=== PATIENT | female | born 1935 | race Caucasian/White ===

== ENCOUNTER 2017-05-19 17:08 | Inpatient (IN) | payer OTHER, MEDICARE ==
--- NOTE | 2017-05-19 17:29 | ER Document Report ---
ED Medical Screen (RME) - General Chief Complaint: Abnormal Lab Results Stated Complaint: ABNORMAL LABS Time Seen by Provider: 05/19/17 17:27 Notes: Patient states she went to her primary care doctor's office today for a routine visit. The doctor stated that he felt that she looked pale and had a blood count. She states that she was told by the doctor that her blood count was 6.2 and she needed to come to the emergency department for evaluation. Patient denies any symptoms including feeling weak. TRAVEL OUTSIDE OF THE [place] IN LAST 30 DAYS: No - Related Data Allergies/Adverse Reactions: povidone-iodine [From Betadine] Allergy (Verified 05/19/17 17:13) soap [From Betadine] Allergy (Verified 05/19/17 17:13) prednisone Adverse Reaction (Verified 05/19/17 17:13) Past Medical History Renal/ Medical History: Denies: Hx Peritoneal Dialysis Physical Exam - Vital signs Vitals: Temp Pulse Resp BP Pulse Ox 98.8 F 88 20 148/70 H 99 05/19/17 17:11 05/19/17 17:11 05/19/17 17:11 05/19/17 17:11 05/19/17 17:11 Course - Vital Signs Vital signs: Temp Pulse Resp BP Pulse Ox 98.8 F 88 20 148/70 H 99 05/19/17 17:11 05/19/17 17:11 05/19/17 17:11 05/19/17 17:11 05/19/17 17:11
[2017-05-19 18:30] LABS: ABSOLUTE BASOPHILS # (AUTO) 0.1 10^3/uL (0.0-0.2); ABSOLUTE EOSINOPHILS # (AUTO) 0.2 10^3/uL (0.0-0.6); ABSOLUTE LYMPHOCYTES (AUTO) 2.2 10^3/uL (0.5-4.7); ABSOLUTE MONOCYTES (AUTO) 0.8 10^3/uL (0.1-1.4); ABSOLUTE NEUT (AUTO) 3.3 10^3/uL (1.7-8.2); BASOPHILS % (AUTO) 1.4 % (0-2); EOSINOPHILS % (AUTO) 2.4 % (0-6); HEMATOCRIT 21.7 % (36.0-47.0); HGB HCT DIFFERENCE -1.9; LYMPHOCYTES % (AUTO) 33.6 % (13-45); MEAN CORPUSCULAR HEMOGLOBIN 22.4 pg (27.0-33.4); MEAN CORPUSCULAR HGB CONC 30.7 g/dL (32.0-36.0); MEAN CORPUSCULAR VOLUME 73 fl (80-97); MONOCYTES % (AUTO) 12.9 % (3-13); RED BLOOD COUNT 2.97 10^6/uL (3.72-5.28); RED CELL DISTRIBUTION WIDTH 19.9 % (11.5-14.0); SEGMENTED NEUTROPHILS % (AUTO) 49.7 % (42-78); WHITE BLOOD COUNT 6.6 10^3/uL (4.0-10.5)
[2017-05-19 18:36] LABS: HEMOGLOBIN 6.6 g/dL (12.0-15.5)
[2017-05-19 18:42] LABS: ALANINE AMINOTRANSFERASE 18 U/L (9-52); ALBUMIN 3.8 g/dL (3.5-5.0); ALKALINE PHOSPHATASE 63 U/L (38-126); ANION GAP 10 (5-19); ASPARTATE AMINO TRANSFERASE 27 U/L (14-36); BILIRUBIN,DIRECT 0.4 mg/dL (0.0-0.4); BILIRUBIN,TOTAL 0.4 mg/dL (0.2-1.3); BLOOD UREA NITROGEN 17 mg/dL (7-20); CALCIUM 9.8 mg/dL (8.4-10.2); CARBON DIOXIDE 23 mmol/L (22-30); CHLORIDE 109 mmol/L (98-107); CREATININE RESULT 0.87 mg/dL (0.52-1.25); GLUCOSE 100 mg/dL (75-110); POTASSIUM 4.5 mmol/L (3.6-5.0); SODIUM 141.6 mmol/L (137-145); TOTAL PROTEIN 6.1 g/dL (6.3-8.2)
[2017-05-19] MEDS ORDERED: NORMAL SALINE 250 ML IV PRN (18:59)
--- NOTE | 2017-05-19 19:02 | ER Document Report ---
ED General - General Chief Complaint: Abnormal Lab Results Stated Complaint: ABNORMAL LABS Time Seen by Provider: 05/19/17 17:27 Notes: Patient is an 81-year-old female who presents from her primary care physician's office with concerns of a critically low hemoglobin at 6.2. Patient went in today for routine physical examination. During that time, the doctor became concerned that she appeared pale and order a panel of laboratories. She was contacted shortly thereafter and notified that her hemoglobin was critically low and she needed to come to the emergency department for further evaluation. The patient has no prior history of GI bleeds, chronic anemia, or malignancy. She does note that she has had an unintentional 15 pound weight loss over the last 4 months. Her daughter at the bedside notes that she appears to have less of an appetite likewise over the past 4 months. The patient denies any additional symptoms including abdominal pain, hematochezia, melena, hematemesis. She denies any chest pain or shortness of breath. She does admit that over the past several months she knows she becomes fatigued more easily but has not noted any additional symptoms. Her last colonoscopy was apparently in her early 70s. TRAVEL OUTSIDE OF THE [place] IN LAST 30 DAYS: No - Related Data Allergies/Adverse Reactions: povidone-iodine [From Betadine] Allergy (Verified 05/19/17 17:13) soap [From Betadine] Allergy (Verified 05/19/17 17:13) prednisone Adverse Reaction (Verified 05/19/17 17:13) Home Medications: Current Home Medications Aspirin [Piedad Chewable Aspirin] 81 mg PO DAILY 05/19/17 [History] Calcium Carbonate [Calcium] 1,200 mg PO DAILY 05/19/17 [History] Cholecalciferol (Vitamin D3) [Vitamin D3 2000 unit Tablet] 2,000 unit PO DAILY 05/19/17 [History] Ezetimibe [Zetia 10 mg Tablet] 10 mg PO DAILY 05/19/17 [History] Past Medical History - General Information source: Patient - Social History Smoking Status: Former Smoker Chew tobacco use (# tins/day): No Frequency of alcohol use: None Drug Abuse: None Lives with: Alone Family History: Reviewed & Not Pertinent Renal/ Medical History: Denies: Hx Peritoneal Dialysis - Immunizations Hx Diphtheria, Pertussis, Tetanus Vaccination: Yes Review of Systems - Review of Systems Notes: Constitutional: Negative for fever. HENT: Negative for sore throat. Eyes: Negative for visual changes. Cardiovascular: Negative for chest pain. Respiratory: Negative for shortness of breath. Gastrointestinal: Negative for abdominal pain, vomiting or diarrhea. Genitourinary: Negative for dysuria. Musculoskeletal: Negative for back pain. Skin: Negative for rash. Neurological: Negative for headaches, weakness or numbness. 10 point ROS negative except as marked above and in HPI. Physical Exam - Vital signs Vitals: Temp Pulse Resp BP Pulse Ox 98.8 F 88 20 148/70 H 99 05/19/17 17:11 05/19/17 17:11 05/19/17 17:11 05/19/17 17:11 05/19/17 17:11 Interpretation: Hypertensive Notes: PHYSICAL EXAMINATION: GENERAL: Well-appearing, well-nourished and in no acute distress. HEAD: Atraumatic, normocephalic. EYES: Pupils equal round and reactive to light, extraocular movements intact, sclera anicteric, conjunctiva are normal. ENT: nares patent, oropharynx clear without exudates. Moist mucous membranes. NECK: Normal range of motion, supple without lymphadenopathy LUNGS: Breath sounds clear to auscultation bilaterally and equal. No wheezes rales or rhonchi. HEART: Regular rate and rhythm without murmurs ABDOMEN: Soft, nontender, normoactive bowel sounds. No guarding, no rebound. No masses appreciated. Rectal: No gross blood or melena. No masses. EXTREMITIES: Normal range of motion, no pitting or edema. No cyanosis. NEUROLOGICAL: No focal neurological deficits. Moves all extremities spontaneously and on command. PSYCH: Normal mood, normal affect. SKIN: Warm, Dry, normal turgor, no rashes or lesions noted. Mild pallor Course - Re-evaluation Re-evalutation: 05/19/17 19:01 Patient presents with concern of a hemoglobin obtained on routine screening at her primary care doctor's office at 6.2. It is noted to be 6.6 here. MCV is low at 73 consistent with an acute blood loss anemia versus iron deficiency anemia. Patient denies any GI bleeding, vaginal bleeding, does admit to poor dietary habits as well as a unintentional 15 pound weight loss over the past 4 months. Her last colonoscopy screening was in her early 70s. Rectal exam without any gross blood or melena. Remainder physical exam is overall unremarkable with exception of obvious pallor on exam. Will obtain additional anemia panel labs. I do have concern for possible malignancy as the origin of her anemia as well as weight loss and have discussed this with the patient. 05/19/17 19:44 Patient's stool guaiac is positive. Will proceed with CT abdomen pelvis to evaluate for an acute malignancy. Will plan for admission given her acute blood loss anemia and positive stool. 05/19/17 21:11 CT abdomen pelvis thankfully does not show any evidence of acute malignancy. I have discussed this case with Dr. Gann the GI physician on-call who is agreeable that she needs inpatient colonoscopy. I have also spoken to Dr. Heard who is agreeable to admission. - Vital Signs Vital signs: Temp Pulse Resp BP Pulse Ox 98.8 F 88 15 109/55 L 100 05/19/17 17:11 05/19/17 17:11 05/19/17 20:37 05/19/17 20:37 05/19/17 20:37 - Laboratory Result Diagrams: 05/19/17 18:00 05/19/17 18:00 Laboratory results interpreted by me: 05/19/17 05/19/17 05/19/17 18:00 18:00 18:00 RBC 2.97 L Hgb 6.6 L Hct 21.7 L MCV 73 L MCH 22.4 L MCHC 30.7 L RDW 19.9 H Retic Count (auto) Chloride 109 H Iron Ferritin Total Protein 6.1 L Vitamin B12 Crossmatch See Detail 05/19/17 05/19/17 05/19/17 18:00 18:00 19:55 RBC Hgb Hct MCV MCH MCHC RDW Retic Count (auto) 2.90 H Chloride Iron 19.1 L Ferritin 6.31 L Total Protein Vitamin B12 233.0 L Crossmatch See Detail - Diagnostic Test Radiology reviewed: Reports reviewed Discharge - Discharge Clinical Impression: Acute blood loss anemia, Lower GI bleed Condition: Fair Disposition: ADMITTED INPATIENT Admitting Provider: Marci Heard Unit Admitted: [facility]
[2017-05-19 19:17] LABS: ADD ON TESTING BLD IN LAB ACKNOWLEDGE
[2017-05-19 20:02] LABS: FERRITIN 6.31 ng/mL (11.1-264.0)
--- NOTE | 2017-05-19 20:44 | RADIOLOGY REPORT (SQ) ---
EXAM DESCRIPTION: CT ABD/PELVIS WITH IV ONLY COMPLETED DATE/TIME: 05/19/2017 8:29 pm REASON FOR STUDY: eval weight loss, blood loss anemia COMPARISON: None. TECHNIQUE: CT scan of the abdomen and pelvis performed using helical scanning technique with dynamic intravenous contrast injection. No oral contrast. Images reviewed with lung, soft tissue, and bone windows. Reconstructed coronal and sagittal MPR images reviewed. Delayed images for evaluation of the urinary system also acquired. All images stored on PACS. All CT scanners at this facility use dose modulation, iterative reconstruction, and/or weight based d osing when appropriate to reduce radiation dose to as low as reasonably achievable (ALARA). [facility]: Dose Right [facility]: CareDose [facility]: Dose Right [facility]: Teradose 4D [facility]: AutoeBid CONTRAST TYPE AND DOSE: contrast/concentration: Isovue 370.00 mg/ml; Total Contrast Delivered: 79.0 ml; Total Saline Delivered: 38.0 ml RENAL FUNCTION: GFR > 60. RADIATION DOSE: Up-to-date CT equipment and radiation dose reduction techniques were employed. CTDIv ol: 8.0 - 11.4 mGy. DLP: 959 mGy-cm.. LIMITATIONS: None. FINDINGS: LOWER CHEST: No significant findings. No nodules or infiltrates. LIVER: Cyst/hemangioma. No significant masses. SPLEEN: Normal size. No focal lesions. PANCREAS: No masses. No significant calcifications. No adjacent inflammation or peripancreatic fluid collections. Pancreatic duct not dilated. GALLBLADDER: Surgically absent. ADRENAL GLANDS: No significant masses or asymmetry. RIGHT KIDNEY AND URETER: Renal cysts No significant calcifications. No hydronephrosis or hydroure ter. LEFT KIDNEY AND URETER: Renal cysts No significant calcifications. No hydronephrosis or hydrouret er. AORTA AND VESSELS: No aneurysm. No dissection. Renal arteries, SMA, celiac without stenosis. RETROPERITONEUM: No retroperitoneal adenopathy, hemorrhage or masses. BOWEL AND PERITONEAL CAVITY: No masses or inflammatory changes. No free fluid or peritoneal masses. APPENDIX: Not visualized. PELVIS: No mass. No free fluid. Normal bladder. ABDOMINAL WALL: No masses. No hernias. BONES: No significant or acute findings. OTHER: No other significant finding. IMPRESSION: NO SIGNIFICANT OR ACUTE FINDING IN THE ABDOMEN OR PELVIS ON CT SCAN WITH IV CONTRAST. TECHNICAL DOCUMENTATION: JOB ID: [id number] Quality ID # [id number]: Final reports with documentation of one or more dose reduction techniques (e.g., Au tomated exposure control, adjustment of the mA and/or kV according to patient size, use of iterative reconstruction technique) 2010 [employer]- All Rights Reserved
[2017-05-19 23:20] LABS: ADD ON TESTING BLD IN LAB ACKNOWLEDGE
[2017-05-19 23:44] LABS: MAGNESIUM 2.1 mg/dL (1.6-2.3)
[2017-05-19 23:59] LABS: PROTHROMBIN TIME 14.5 SEC (11.4-15.4)
[2017-05-20] LABS: PARTIAL THROMBOPLASTIN TIME 31.7 SEC (23.5-35.8)
[2017-05-20] MEDS ORDERED: NORMAL SALINE 1000 ML 1,000 ML IV PRN (01:43)
[2017-05-20] MEDS ORDERED: PROMETHAZINE HCL 25 MG TABLET PO PRN (01:50)
--- NOTE | 2017-05-20 02:27 | PDOC H&P ---
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 Patient has been discussed with emergency room physician who evaluated the patient. Was seen at her primary care physician's office today. Was noted to be quite pale. Hemoglobin drawn there 6.2. Primary care provider's office contacted patient and told her to come to the emergency room. No prior history of GI bleed, chronic anemia, or malignancy. There has been an unintentional 15 pound weight loss over the past 4 months, associated with decreased appetite. Has noted an occasional dark stool, but no matthew melena. Denies nausea vomiting, fever or chills. No diarrhea or dysuria, chest or abdominal pain. No history of peptic ulcer disease. Last colonoscopy was in her early 70s, and was reportedly negative. States she was told by her host, Dr. Sherman, that no further follow-up was needed. Emergency room physician did discuss the patient by phone with on-call gastroenterology, Dr. Mcclure, who has agreed to see the patient in consultation. Dictation via voice recognition software. Laboratory results are listed in [employer] and are reviewed. X-ray summary results are listed below, with full report(s) reviewed. . Social history/personal habits: . Retired. Has children. Quarter pack of cigarettes per day. No alcohol or illicit drug use. Allergies/adverse reactions are listed in [employer] and are reviewed. No problems with intravenous contrast. Prednisone because ankle and foot swelling. Home medications initially autopopulated into [employer] may not accurately reflect patient's true medications, dosages, and/or frequencies. 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 Unfortunately, patient not certain of all medications/dosages/frequencies. REVIEW OF SYSTEMS: Constitutional: No fever or chills. Eyes: Wears glasses. ENT: No swallowing problems or complaints. Partial hearing loss. Pulmonary: No current complaints. Cardiovascular: No current complaints, including chest pain. Gastrointestinal: See history and present illness. Skin: No current complaints, including rashes. Hematologic: Easy bruising. Neurologic: No current complaints, including numbness or tingling. Musculoskeletal: Joint pain from arthritis. Psychiatric: Denies anxiety or depression. Endocrine: No current complaints, including polyuria. Genitourinary: No current complaints, including dysuria. PHYSICAL EXAMINATION: Daughter is present at her side; patient improves. 5 feet tall. 73 kg. BMI 31.4 kg/m. Temperature 98.5. Blood pressure 115/56. Pulse 71 and regular. Respirations are 20 and unlabored. 96% saturation on room air. Slightly obese otherwise well-developed elderly female who appears approximately her stated age. Pleasant awake alert and cooperative. No obvious distress other than somewhat anxious. Skin is warm and dry. No grossly obvious evidence of rash in areas of skin examined. No subcutaneous nodules palpated. ENT: Hearing grossly normal to normal conversation. Tongue midline on protrusion pink and slightly tacky. Eyes: No scleral icterus. Pupils equal and reactive to light at 4 mm. Pale conjunctivae. Neck is supple and nontender to gentle active range of motion and palpation. Midline trachea. No palpable thyroid nodule mass enlargement or tenderness. Lymphatic: No palpable cervical or clavicular nodes. Neck and lymphatic exams limited by patient body habitus. Psychiatric: Reasonable insight into acute and chronic medical issues. Oriented to time location and why here. Lungs: Auscultation reveals clear and equal breath sounds bilaterally. No use of accessory respiratory muscles. Cardiovascular: Heart regular rate and rhythm, without gallop murmur or rub. No carotid or abdominal aortic bruits. No ankle or pedal edema. Palpable dorsalis pedis pulses. Abdomen:soft slightly obese nontender with positive bowel sounds. Unable to adequately evaluate abdomen for masses or organomegaly due to body habitus. Extremities: Feet are warm and dry. No calf tenderness to compression. No grossly obvious visual evidence of calf swelling. Gentle manipulation of lower extremities fails to reveal any obvious evidence of injury or instability to knees hips or ankles. Neurologic: Moves upper extremities grossly normally. Patellar reflexes absent. Absent Babinski. Light touch is intact at feet. Dorsiflexion and plantarflexion of feet 5 / 5 and symmetric. Past Medical History Cardiac Medical History: Reports: Hyperlipidema Denies: Atrial Fibrillation, Congestive Heart Failure, Coronary Artery Disease, DVT, Myocardial Infarction, Hypertension, Pulmonary Embolism Pulmonary Medical History: Reports: Chronic Obstructive Pulmonary Disease (COPD) Denies: Asthma, Sleep Apnea EENT Medical History: Reports: Eyes - Wears glasses, Ears - Partial hearing loss Denies: Throat Neurological Medical History: Denies: Hemorrhagic CVA, Ischemic CVA, Seizures Endocrine Medical History: Denies: Diabetes Mellitus Type 1, Diabetes Mellitus Type 2, Hyperthyroidism, Hypothyroidism Renal/ Medical History: Reports: None GI Medical History: Denies: Cirrhosis, Gastroesophageal Reflux Disease, Hepatitis, Peptic Ulcer Disease Musculoskeltal Medical History: Reports: Arthritis Skin Medical History: Reports: None Psychiatric Medical History: Reports: Tobacco Dependency Denies: Alcohol Dependency, Depression, General Anxiety Disorder, Substance Abuse Hematology: Reports: Other - Easy bruising Infectious Medical History: Denies: Hepatitis B, Hepatitis C Past Surgical History Past Surgical History: Reports: Cholecystectomy, Tubal Ligation Social History Information Source: Patient, Emergency Med Personnel, [facility] Lives with: Spouse/Significant other Smoking Status: Current Every Day Smoker Cigars Per Day: 7 Number of Years Smokin Frequency of Alcohol Use: None Hx Recreational Drug Use: No Drugs: None - Advance Directive Resuscitation Status: Do Not Resuscitate Surrogate healthcare decision maker:: or children Family History Family History: Reviewed & Not Pertinent Parental Family History Reviewed: Yes - Mother of old age; father diabetic complications Children Family History Reviewed: Yes - Son with von Willebrand's; daughter with hypertension Sibling(s) Family History Reviewed.: Yes - Sister with hypertension Medication/Allergy Home Medications: Aspirin [Piedad Chewable Aspirin] 81 mg PO DAILY 05/19/17 Calcium Carbonate [Calcium] 1,200 mg PO DAILY 05/19/17 Cholecalciferol (Vitamin D3) [Vitamin D3 2000 unit Tablet] 2,000 unit PO DAILY 05/19/17 Ezetimibe [Zetia 10 mg Tablet] 10 mg PO DAILY 05/19/17 Allergies/Adverse Reactions: povidone-iodine [From Betadine] Allergy (Verified 05/20/17 02:10) soap [From Betadine] Allergy (Verified 05/20/17 02:10) prednisone Adverse Reaction (Verified 05/20/17 02:10) ankle/foot swelling Physical Exam Vital Signs: Temp Pulse Resp BP Pulse Ox 98.4 F 77 20 103/44 L 97 05/20/17 01:36 05/20/17 01:36 05/20/17 01:36 05/20/17 01:36 05/20/17 01:36 Intake & Output 05/19/17 05/20/17 05/21/17 00:59 00:59 00:59 Intake Total 0 Balance 0 Weight 73.028 kg Results Impressions: Abdomen/Pelvis CT 05/19/17 19:19 IMPRESSION: NO SIGNIFICANT OR ACUTE FINDING IN THE ABDOMEN OR PELVIS ON CT SCAN WITH IV CONTRAST. Assessment & Plan - Diagnosis (1) Anemia Qualifiers: Anemia type: other cause Other causes of anemia: other cause, not classified Qualified Code(s): D64.89 - Other specified anemias Is this a current diagnosis for this admission?: Yes Plan: 2 unit transfusion ordered by emergency room physician. Follow-up H&H. I have strongly encouraged patient not to get out of bed without notifying staff , to avoid a fall with injury. Knee high SCDs for DVT prophylaxis; with anemia requiring blood transfusion, and heme positive stool, will forego Lovenox or heparin at this point in time. Impression and plans were discussed with patient and daughter, both of whom concur. Time spent in evaluation and management of patient: 70 minutes. (2) DNR (do not resuscitate) Is this a current diagnosis for this admission?: Yes Plan: Implications of DO NOT RESUSCITATE/DO NOT INTUBATE status discussed with patient. Discussed in layperson's terms. Implications understood. Patient is the health care decision maker. Patient conversation is lucid and appropriate. Patient desires DO NOT RESUSCITATE/DO NOT INTUBATE status. Will honor patient wishes. Daughter at bedside, and concurs. (3) Heme + stool Is this a current diagnosis for this admission?: Yes Plan: GI consult with Dr. Mcclure, who is aware of consult and has agreed to see patient. IV Protonix. Carafate. (4) Weight loss, non-intentional Is this a current diagnosis for this admission?: Yes Plan: Dietary consult for diet recommendation. Further follow-up as outpatient. (5) COPD (chronic obstructive pulmonary disease) Qualifiers: COPD type: unspecified COPD Qualified Code(s): J44.9 - Chronic obstructive pulmonary disease, unspecified Is this a current diagnosis for this admission?: Yes Plan: No evidence of acute exacerbation of same. Resume home medications as appropriate once these have been determined and reviewed. (6) HLD (hyperlipidemia) Qualifiers: Hyperlipidemia type: unspecified Qualified Code(s): E78.5 - Hyperlipidemia , unspecified Is this a current diagnosis for this admission?: Yes Plan: Resume home medications as appropriate once these have been determined and reviewed. (7) Tobacco dependency Is this a current diagnosis for this admission?: Yes Plan: As needed nicotine patch. - Time Time Spent: 50 to 70 Minutes Anticipated discharge: Home Within: within 72 hours - Inpatient Certification Based on my medical assessment, after consideration of the patient's comorbidities, presenting symptoms, or acuity I expect that the services needed warrant INPATIENT care.: Yes I certify that my determination is in accordance with my understanding of Medicare's requirements for reasonable and necessary INPATIENT services [42 CFR 412.3e].: Yes Medical Necessity: Need Close Monitoring Due to Risk of Patient Decompensation, Need for Surgery, Risk of Complication if Not Cared For in Hospital Post Hospital Care: D/C or Transfer Summary
[2017-05-20] MEDS: SUCRALFATE 1 GM TABLET PO SCH ×4 (02:51→17:02)
[2017-05-20 05:21] LABS: HEMATOCRIT 23.9 % (36.0-47.0); HGB HCT DIFFERENCE -0.5; MEAN CORPUSCULAR HEMOGLOBIN 23.8 pg (27.0-33.4); MEAN CORPUSCULAR HGB CONC 32.7 g/dL (32.0-36.0); MEAN CORPUSCULAR VOLUME 73 fl (80-97); RED BLOOD COUNT 3.29 10^6/uL (3.72-5.28); RED CELL DISTRIBUTION WIDTH 18.9 % (11.5-14.0); WHITE BLOOD COUNT 7.1 10^3/uL (4.0-10.5)
[2017-05-20 05:25] LABS: HEMOGLOBIN 7.8 g/dL (12.0-15.5)
[2017-05-20] MEDS ORDERED: NORMAL SALINE 250 ML IV PRN ×2 (05:44)
--- NOTE | 2017-05-20 07:36 | PDOC CONSULTATION ---
Consultation Consult Date: 05/20/17 Attending physician:: CHICHO QUINONEZ Consult reason:: chronic anemia. unintentional weight loss History of Present Illness Admission Date/PCP: 05/19/17 23:55 History of Present Illness: I was called by ER physician overnight on this patient had presented to the ED, noted to be anemic denies any rectal bleeding but states that stools are dark was noted to have Hgb around 6 had colonoscopy about 10 years ago, was told did not need further screening has had unintenional weight loss as well patient to be admitted transfusion needed she will likely need repeat GI work to exclude specific etiology patient denies any hematemesis there is no dysphagia or odynophagia daughter is present patient denies any chest pain or shortness of breath at this time Past Medical History Cardiac Medical History: Reports: Hyperlipidema Denies: Atrial Fibrillation, Congestive Heart Failure, Coronary Artery Disease, DVT, Myocardial Infarction, Hypertension, Pulmonary Embolism Pulmonary Medical History: Reports: Chronic Obstructive Pulmonary Disease (COPD) Denies: Asthma, Sleep Apnea EENT Medical History: Reports: Eyes - Wears glasses, Ears - Partial hearing loss , Other - Easy bruising Denies: Throat Neurological Medical History: Denies: Hemorrhagic CVA, Ischemic CVA, Seizures Endocrine Medical History: Denies: Diabetes Mellitus Type 1, Diabetes Mellitus Type 2, Hyperthyroidism, Hypothyroidism Renal/ Medical History: Reports: None GI Medical History: Denies: Cirrhosis, Gastroesophageal Reflux Disease, Hepatitis, Peptic Ulcer Disease Musculoskeltal Medical History: Reports: Arthritis Skin Medical History: Reports: None Psychiatric Medical History: Reports: Tobacco Dependency Denies: Alcohol Dependency, Depression, General Anxiety Disorder, Substance Abuse Hematology: Reports: Other - Easy bruising Infectious Medical History: Denies: Hepatitis B, Hepatitis C Past Surgical History Past Surgical History: Reports: Cholecystectomy, Tubal Ligation Social History Lives with: Alone Smoking Status: Former Smoker Cigars Per Day: 7 Number of Years Smokin Frequency of Alcohol Use: None Hx Recreational Drug Use: No Drugs: None - Advance Directive Resuscitation Status: Do Not Resuscitate Family History Family History: Reviewed & Not Pertinent Parental Family History Reviewed: Yes Children Family History Reviewed: Unknown Sibling(s) Family History Reviewed.: Unknown Medication/Allergy Home Medications: Aspirin [Piedad Chewable Aspirin] 81 mg PO DAILY 05/19/17 Calcium Carbonate [Calcium] 1,200 mg PO DAILY 05/19/17 Cholecalciferol (Vitamin D3) [Vitamin D3 2000 unit Tablet] 2,000 unit PO DAILY 05/19/17 Ezetimibe [Zetia 10 mg Tablet] 10 mg PO DAILY 05/19/17 Allergies/Adverse Reactions: povidone-iodine [From Betadine] Allergy (Verified 05/20/17 02:10) soap [From Betadine] Allergy (Verified 05/20/17 02:10) prednisone Adverse Reaction (Verified 05/20/17 02:10) ankle/foot swelling Review of Systems Constitutional: PRESENT: weakness. ABSENT: fever(s), headache(s), night sweats Eyes: ABSENT: visual disturbances Ears: ABSENT: hearing changes Nose, Mouth, and Throat: ABSENT: mouth pain, sore throat Cardiovascular: ABSENT: orthropnea, palpitations Respiratory: ABSENT: dyspnea, hemoptysis Gastrointestinal: ABSENT: abdominal pain, coffee ground emesis, diarrhea, hematochezia Genitourinary: ABSENT: dysuria, hematuria Musculoskeletal: ABSENT: deformity, joint swelling Integumentary: ABSENT: lesions, pruritus Neurological: ABSENT: syncope, tingling, tremor(s), vertigo Psychiatric: ABSENT: hallucinations Endocrine: ABSENT: polydipsia, polyphagia, polyuria Hematologic/Lymphatic: PRESENT: easy bruising Physical Exam Vital Signs: Temp Pulse Resp BP Pulse Ox 98.7 F 67 18 104/55 L 96 05/20/17 07:11 05/20/17 07:11 05/20/17 07:11 05/20/17 07:11 05/20/17 07:11 Intake & Output 05/19/17 05/20/17 05/21/17 06:59 06:59 06:59 Intake Total 350 0 Balance 350 0 Weight 78.3 kg General appearance: PRESENT: no acute distress, well-developed, well-nourished Head exam: PRESENT: atraumatic, normocephalic Eye exam: PRESENT: EOMI, PERRLA. ABSENT: nystagmus, periorbital swelling, scleral icterus Mouth exam: PRESENT: moist, neck supple Throat exam: ABSENT: tonsillar exudate, tonsillogmegaly Neck exam: PRESENT: full ROM. ABSENT: meningismus, tenderness, thyromegaly Respiratory exam: PRESENT: symmetrical, unlabored. ABSENT: chest wall tenderness, tachypnea, wheezes Cardiovascular exam: PRESENT: RRR, +S1, +S2 GI/Abdominal exam: PRESENT: soft. ABSENT: ascites, Qureshi's sign, rebound, rigid, tenderness Extremities exam: ABSENT: calf tenderness, clubbing, joint swelling Musculoskeletal exam: PRESENT: full ROM Neurological exam: PRESENT: alert, awake, oriented to time, oriented to situation, CN II-XII grossly intact Psychiatric exam: PRESENT: appropriate affect Skin exam: PRESENT: mottled, normal color. ABSENT: pallor, petechiae, urticaria , vesicles Results Laboratory Results: 05/20/17 05:08 05/20/17 05:08 WBC 7.1 RBC 3.29 L Hgb 7.8 L Hct 23.9 L MCV 73 L MCH 23.8 L MCHC 32.7 RDW 18.9 H Plt Count 153 Impressions: Abdomen/Pelvis CT 05/19/17 19:19 IMPRESSION: NO SIGNIFICANT OR ACUTE FINDING IN THE ABDOMEN OR PELVIS ON CT SCAN WITH IV CONTRAST. Assessment & Plan - Diagnosis (1) Acute blood loss anemia Plan: presumed blood loss likely chronic over time had colonoscopy over 10 years ago will need to be admitted stabilized with PRBC transfusion will need GI work up colonoscopy to be scheduled Risks, benefits and alternatives are discussed with the patient further recommendations to follow (2) Heme + stool Is this a current diagnosis for this admission?: Yes Plan: will need upper EGD as well can do at same setting (3) Weight loss, non-intentional Is this a current diagnosis for this admission?: Yes Plan: weight loss has been gradual will need to exclude either an upper or lower GI tract lesion continue to monitor - Time Time Spent: 50 to 70 Minutes
[2017-05-20] MEDS: DOCUSATE SODIUM 100 MG CAPSULE PO SCH ×2 (11:04→17:03)
[2017-05-20] MEDS: PANTOPRAZOLE SODIUM 40 MG VIAL IV SCH ×2 (11:04→21:50)
[2017-05-20 12:53] LABS: ABSOLUTE BASOPHILS # (AUTO) 0.1 10^3/uL (0.0-0.2); ABSOLUTE EOSINOPHILS # (AUTO) 0.2 10^3/uL (0.0-0.6); ABSOLUTE MONOCYTES (AUTO) 0.9 10^3/uL (0.1-1.4); ABSOLUTE NEUT (AUTO) 4.1 10^3/uL (1.7-8.2); BASOPHILS % (AUTO) 0.9 % (0-2); EOSINOPHILS % (AUTO) 2.4 % (0-6); HEMATOCRIT 26.7 % (36.0-47.0); HEMOGLOBIN 8.8 g/dL (12.0-15.5); HGB HCT DIFFERENCE -0.3; LYMPHOCYTES % (AUTO) 27.3 % (13-45); MEAN CORPUSCULAR HEMOGLOBIN 24.4 pg (27.0-33.4); MEAN CORPUSCULAR VOLUME 74 fl (80-97); MONOCYTES % (AUTO) 12.3 % (3-13); RED BLOOD COUNT 3.62 10^6/uL (3.72-5.28); RED CELL DISTRIBUTION WIDTH 19.7 % (11.5-14.0); SEGMENTED NEUTROPHILS % (AUTO) 57.1 % (42-78); WHITE BLOOD COUNT 7.2 10^3/uL (4.0-10.5)
--- NOTE | 2017-05-20 13:44 | PDOC PROGRESS REPORT ---
Subjective Progress Note for:: 05/20/17 Subjective:: Patient denies any specific complaints. Denies any abdominal pain nausea or vomiting. Denies dizziness at this time. Denies melena hematochezia or hematemesis. No vaginal bleeding as well. No hematuria noted. Physical Exam Vital Signs: Temp Pulse Resp BP Pulse Ox 97.6 F 58 L 16 109/54 L 98 05/20/17 11:07 05/20/17 11:07 05/20/17 11:07 05/20/17 11:07 05/20/17 11:07 Intake & Output 05/19/17 05/20/17 05/21/17 06:59 06:59 06:59 Intake Total 350 350 Balance 350 350 Weight 78.3 kg General appearance: PRESENT: no acute distress, cooperative Head exam: PRESENT: normocephalic Eye exam: PRESENT: EOMI Mouth exam: PRESENT: moist, neck supple Neck exam: ABSENT: JVD Respiratory exam: PRESENT: clear to auscultation roxann. ABSENT: rhonchi, wheezes Cardiovascular exam: PRESENT: RRR. ABSENT: gallop GI/Abdominal exam: PRESENT: hypoactive bowel sounds, soft. ABSENT: tenderness Extremities exam: ABSENT: pedal edema Neurological exam: PRESENT: alert, awake, oriented to situation Skin exam: PRESENT: dry, warm. ABSENT: cyanosis Results Laboratory Results: 05/20/17 12:38 05/20/17 05/20/17 05:08 12:38 WBC 7.1 7.2 RBC 3.29 L 3.62 L Hgb 7.8 L 8.8 L Hct 23.9 L 26.7 L MCV 73 L 74 L MCH 23.8 L 24.4 L MCHC 32.7 33.0 RDW 18.9 H 19.7 H Plt Count 153 143 L Seg Neutrophils % 57.1 Lymphocytes % 27.3 Monocytes % 12.3 Eosinophils % 2.4 Basophils % 0.9 Absolute Neutrophils 4.1 Absolute Lymphocytes 2.0 Absolute Monocytes 0.9 Absolute Eosinophils 0.2 Absolute Basophils 0.1 Impressions: Abdomen/Pelvis CT 05/19/17 19:19 IMPRESSION: NO SIGNIFICANT OR ACUTE FINDING IN THE ABDOMEN OR PELVIS ON CT SCAN WITH IV CONTRAST. Assessment & Plan - Diagnosis (1) Anemia Qualifiers: Anemia type: other cause Other causes of anemia: other cause, not classified Qualified Code(s): D64.89 - Other specified anemias Is this a current diagnosis for this admission?: Yes (2) Heme + stool Is this a current diagnosis for this admission?: Yes (3) Osteoarthritis Qualifiers: Osteoarthritis location: unspecified site Osteoarthritis type: unspecified Qualified Code(s): M19.90 - Unspecified osteoarthritis, unspecified site Is this a current diagnosis for this admission?: Yes (4) COPD (chronic obstructive pulmonary disease) Qualifiers: COPD type: unspecified COPD Qualified Code(s): J44.9 - Chronic obstructive pulmonary disease, unspecified Is this a current diagnosis for this admission?: Yes (5) HLD (hyperlipidemia) Qualifiers: Hyperlipidemia type: unspecified Qualified Code(s): E78.5 - Hyperlipidemia , unspecified Is this a current diagnosis for this admission?: Yes - Time Time Spent with patient: 25-34 minutes - Plan Summary Plan Summary: We will follow-up hemoglobin hematocrit serially. Continue proton pump inhibitor. Consult gastroenterology for endoscopic studies. Hold long-term antiplatelet therapy at this time.
[2017-05-20] MEDS: IPRATROPIUM/ALBUTEROL 0.5-2.5 MG/3 ML AMPUL NEB PRN (14:35)
[2017-05-20] MEDS ORDERED: PEG 3350/NA SULF,BICARB,CL/KCL 4000 ML PO ONE (18:00)
[2017-05-20] MEDS: ACETAMINOPHEN 325 MG TABLET PO PRN (21:51)
[2017-05-21] MEDS: SUCRALFATE 1 GM TABLET PO SCH ×4 (00:58→17:28)
[2017-05-21 05:20] LABS: ANION GAP 8 (5-19); BLOOD UREA NITROGEN 12 mg/dL (7-20); CALCIUM 8.4 mg/dL (8.4-10.2); CARBON DIOXIDE 24 mmol/L (22-30); CHLORIDE 110 mmol/L (98-107); CREATININE RESULT 0.82 mg/dL (0.52-1.25); GLUCOSE 84 mg/dL (75-110); POTASSIUM 3.8 mmol/L (3.6-5.0); SODIUM 141.5 mmol/L (137-145)
[2017-05-21 05:21] LABS: HEMATOCRIT 24.3 % (36.0-47.0); HEMOGLOBIN 8.1 g/dL (12.0-15.5); MEAN CORPUSCULAR HEMOGLOBIN 24.9 pg (27.0-33.4); MEAN CORPUSCULAR HGB CONC 33.4 g/dL (32.0-36.0); MEAN CORPUSCULAR VOLUME 75 fl (80-97); RED BLOOD COUNT 3.26 10^6/uL (3.72-5.28); RED CELL DISTRIBUTION WIDTH 19.8 % (11.5-14.0); WHITE BLOOD COUNT 5.3 10^3/uL (4.0-10.5)
[2017-05-21] MEDS ORDERED: DIPHENHYDRAMINE HCL 50 MG/ML VIAL ONE (08:33)
[2017-05-21] MEDS: MIDAZOLAM 2 MG/2 ML INJ ONE ×2 (08:33→08:38)
[2017-05-21] MEDS ORDERED: FENTANYL CITRATE INJ/PF 100 MCG/2 ML AMPUL ONE (08:34)
[2017-05-21] MEDS ORDERED: FLUMAZENIL INJ 0.5 MG/5 ML VIAL ONE (08:34)
[2017-05-21] MEDS ORDERED: NALOXONE HCL INJ/PF 0.4 MG/1 ML SDV ONE (08:34)
[2017-05-21] MEDS ORDERED: ONDANSETRON HCL INJ/PF 4 MG/2 ML SDV ONE (08:34)
[2017-05-21] MEDS ORDERED: EPINEPHRINE INJ 1 MG/10 ML DISP.SYRIN ONE (08:34)
[2017-05-21] MEDS ORDERED: GLUCAGON,HUMAN RECOMB 1 MG INJ ONE (08:35)
[2017-05-21] MEDS: DOCUSATE SODIUM 100 MG CAPSULE PO SCH ×2 (10:15→17:24)
--- NOTE | 2017-05-21 10:51 | PDOC PROGRESS REPORT ---
Subjective Progress Note for:: 05/21/17 Subjective:: Postoperatively the patient was having lightheadedness and some blurring of vision. Eventually resolved. No reported nausea vomiting, abdominal pain diarrhea, melena hematochezia or hematemesis. Physical Exam Vital Signs: Temp Pulse Resp BP Pulse Ox 97.9 F 69 15 112/55 L 95 05/21/17 07:18 05/21/17 09:20 05/21/17 09:20 05/21/17 09:20 05/21/17 09:20 Intake & Output 05/20/17 05/21/17 05/22/17 06:59 06:59 06:59 Intake Total 350 1560 400 Output Total 750 Balance 350 810 400 Weight 78.3 kg 74.6 kg General appearance: PRESENT: no acute distress, cooperative, obese Head exam: PRESENT: normocephalic Eye exam: PRESENT: EOMI Mouth exam: PRESENT: moist, neck supple Neck exam: ABSENT: JVD Respiratory exam: PRESENT: clear to auscultation roxann Cardiovascular exam: PRESENT: RRR GI/Abdominal exam: PRESENT: soft. ABSENT: distended, tenderness Extremities exam: PRESENT: other - Trace pretibial edema Neurological exam: PRESENT: alert, awake, oriented to situation Skin exam: PRESENT: dry, warm. ABSENT: cyanosis Results Laboratory Results: 05/21/17 04:19 05/21/17 04:19 05/20/17 05/21/17 05/21/17 12:38 04:19 04:19 WBC 7.2 5.3 RBC 3.62 L 3.26 L Hgb 8.8 L 8.1 L Hct 26.7 L 24.3 L MCV 74 L 75 L MCH 24.4 L 24.9 L MCHC 33.0 33.4 RDW 19.7 H 19.8 H Plt Count 143 L 124 L Seg Neutrophils % 57.1 Lymphocytes % 27.3 Monocytes % 12.3 Eosinophils % 2.4 Basophils % 0.9 Absolute Neutrophils 4.1 Absolute Lymphocytes 2.0 Absolute Monocytes 0.9 Absolute Eosinophils 0.2 Absolute Basophils 0.1 Sodium 141.5 Potassium 3.8 Chloride 110 H Carbon Dioxide 24 Anion Gap 8 BUN 12 Creatinine 0.82 Est GFR ( Amer) > 60 Est GFR (Non-Af Amer) > 60 Glucose 84 Calcium 8.4 Impressions: Abdomen/Pelvis CT 05/19/17 19:19 IMPRESSION: NO SIGNIFICANT OR ACUTE FINDING IN THE ABDOMEN OR PELVIS ON CT SCAN WITH IV CONTRAST. Assessment & Plan - Diagnosis (1) Anemia Qualifiers: Anemia type: other cause Other causes of anemia: other cause, not classified Qualified Code(s): D64.89 - Other specified anemias Is this a current diagnosis for this admission?: Yes (2) Heme + stool Is this a current diagnosis for this admission?: Yes (3) Osteoarthritis Qualifiers: Osteoarthritis location: unspecified site Osteoarthritis type: unspecified Qualified Code(s): M19.90 - Unspecified osteoarthritis, unspecified site Is this a current diagnosis for this admission?: Yes (4) COPD (chronic obstructive pulmonary disease) Qualifiers: COPD type: unspecified COPD Qualified Code(s): J44.9 - Chronic obstructive pulmonary disease, unspecified Is this a current diagnosis for this admission?: Yes (5) HLD (hyperlipidemia) Qualifiers: Hyperlipidemia type: unspecified Qualified Code(s): E78.5 - Hyperlipidemia , unspecified Is this a current diagnosis for this admission?: Yes - Time Time Spent with patient: 15-24 minutes - Plan Summary Plan Summary: Discontinue IV fluids. Recheck hemoglobin hematocrit. Awaiting colonoscopy results. Continue proton pump inhibitor. No reported active bleeding at the moment, drop in hematocrit could be related to dilution. We will discontinue intravenous fluid and recheck. Resume diet.
[2017-05-21] MEDS: PANTOPRAZOLE SODIUM 40 MG VIAL IV SCH ×2 (11:11→21:33)
--- NOTE | 2017-05-21 11:30 | Operative Report ---
Operative Report DATE OF SURGERY: 05/21/17 Operative Report: The risks, benefits and alternatives of the procedure including risks of bleeding, perforation requiring surgery are explained to the patient detail and informed consent was obtained. Patient was taken back to the endoscopy suite and placed in the left, lateral decubital position. A rectal examination is done which did not reveal any masses, tears or fissures. An Olympus spelled scope was inserted in the patient's rectum. It is carefully advanced all the way to the cecum. The cecum is identified by the usual anatomical landmarks of the ileocecal valve as well as the appendiceal office. Photodocumentation is obtained. The scope was then sequentially pulled back via the various segments of the colon including the ascending colon, hepatic flexure, transverse colon, splenic flexure, descending colon finding to the rectosigmoid portions of the colon. Retroflexion maneuvers performed. The risks benefits and alternatives of the procedure explained to the patient in detail and informed consent is obtained.A GIF Olympus video scope was inserted into the patient's mouth and hypopharynx, the esophagus is identified intubated and insufflated, the scope was then advanced through the esophagus stomach and duodenum, retroflexion maneuver is done, the esophagus stomach and first and second portions of the duodenum examined PREOPERATIVE DIAGNOSIS: Chronic anemia. Possible GI bleed. Unintentional weight loss POSTOPERATIVE DIAGNOSIS: Hiatal hernia. Schatzki's ring. Chowdhury's esophagus status post ablation. Gastritis status post biopsy rule out Helicobacter pylori. 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 2 rectal polyps removed via snare polypectomy and retrieved. Internal hemorrhoids OPERATION: Colonoscopy with snare polypectomy. Colonoscopy with biopsy. EGD with ablation. EGD with biopsy SURGEON: CHICHO QUINONEZ ANESTHESIA: LMAC - 3 mg of Versed, 25 mcg of fentanyl. Conscious sedation monitoring time 30 minutes. TISSUE REMOVED OR ALTERED: As noted above. COMPLICATIONS: None. ESTIMATED BLOOD LOSS: None. INTRAOPERATIVE FINDINGS: As described above. PROCEDURE: Patient tolerated the procedure well. No immediate postprocedure complications are noted. Patient sent back to her room in good condition. We will wait on biopsies. Surveillance colonoscopy in 5 years if clinical status is stable. We will wait on biopsies. Follow-up as outpatient. Resume previous diet. Resume previous activity level.
[2017-05-21] MEDS: IPRATROPIUM/ALBUTEROL 0.5-2.5 MG/3 ML AMPUL NEB PRN (14:09)
[2017-05-21] MEDS: ACETAMINOPHEN 325 MG TABLET PO PRN (14:24)
[2017-05-21 14:42] LABS: HEMATOCRIT 28.2 % (36.0-47.0); HGB HCT DIFFERENCE -1.2; MEAN CORPUSCULAR HEMOGLOBIN 24.3 pg (27.0-33.4); MEAN CORPUSCULAR HGB CONC 32.1 g/dL (32.0-36.0); MEAN CORPUSCULAR VOLUME 76 fl (80-97); RED BLOOD COUNT 3.72 10^6/uL (3.72-5.28); RED CELL DISTRIBUTION WIDTH 19.3 % (11.5-14.0)
[2017-05-22] MEDS: SUCRALFATE 1 GM TABLET PO SCH ×3 (00:17→11:28)
[2017-05-22] MEDS: ACETAMINOPHEN 325 MG TABLET PO PRN (06:07)
[2017-05-22] MEDS: DOCUSATE SODIUM 100 MG CAPSULE PO SCH (10:42)
[2017-05-22] MEDS: PANTOPRAZOLE SODIUM 40 MG VIAL IV SCH (10:42)
[2017-05-22 12:53] VITALS: BP 117/58
--- NOTE | 2017-05-22 14:19 | PDOC DISCHARGE SUMMARY ---
General - Admit/Disc Date/PCP Admission Date/Primary Care Provider: 05/19/17 23:55 Discharge Date: 05/22/17 - Discharge Diagnosis (1) Anemia Is this a current diagnosis for this admission?: Yes (2) Heme + stool Is this a current diagnosis for this admission?: Yes (3) Osteoarthritis Is this a current diagnosis for this admission?: Yes (4) COPD (chronic obstructive pulmonary disease) Is this a current diagnosis for this admission?: Yes (5) HLD (hyperlipidemia) Is this a current diagnosis for this admission?: Yes - Additional Information Resuscitation Status: Do Not Resuscitate Discharge Diet: Regular Discharge Activity: Activity As Tolerated, Balance Activity w/Rest Home Medications: Aspirin [Piedad Chewable Aspirin] 81 mg PO DAILY 05/19/17 Calcium Carbonate [Calcium] 1,200 mg PO DAILY 05/19/17 Cholecalciferol (Vitamin D3) [Vitamin D3 2000 unit Tablet] 2,000 unit PO DAILY 05/19/17 Ezetimibe [Zetia 10 mg Tablet] 10 mg PO DAILY 05/19/17 Lansoprazole [Prevacid] 30 mg PO BID #60 capsule. 05/22/17 Additional Information: Follow-up biopsy results outpatient with primary care physician or Dr. Sherman History of Present Illness Patient complains of: Anemia History of Present Illness: AYAN SINHA is a 81 year old female with underlying non-home O2 dependent COPD, arthritis, and hyperlipidemia, who presents to the emergency room in referral from her primary care provider's office for above issue. Patient has been discussed with emergency room physician who evaluated the patient. Was seen at her primary care physician's office today. Was noted to be quite pale. Hemoglobin drawn there 6.2. Primary care provider's office contacted patient and told her to come to the emergency room. No prior history of GI bleed, chronic anemia, or malignancy. There has been an unintentional 15 pound weight loss over the past 4 months, associated with decreased appetite. Has noted an occasional dark stool, but no matthew melena. Denies nausea vomiting, fever or chills. No diarrhea or dysuria, chest or abdominal pain. No history of peptic ulcer disease. Last colonoscopy was in her early 70s, and was reportedly negative. States she was told by her manager manufacturing, Dr. Sherman, that no further follow-up was needed. Emergency room physician did discuss the patient by phone with on-call gastroenterology, Dr. Mcclure, who has agreed to see the patient in consultation. Hospital Course Hospital Course: The patient was admitted to [facility]. The patient was given 2 units of packed RBC. Follow-up hemoglobin hematocrit monitoring was stable subsequently. Patient was hydrated, placed on intravenous proton pump inhibitor. Gastroenterology was consulted who eventually perform upper and lower endoscopy. Patient without any active bleeding noted. There was polypectomy done. Chowdhury's esophagus was noted with ablation done as well. There is gastritis noted as well as hiatal hernia and Schatzki's ring. The patient improved. The rest of the hospital stays unremarkable. Patient educated and instructed about signs and symptoms of gastrointestinal bleeding. Patient understood. Patient eventually discharged home with above instructions. Physical Exam Vital Signs: Temp Pulse Resp BP Pulse Ox 98.7 F 69 18 117/58 L 94 05/22/17 12:48 05/22/17 12:48 05/22/17 12:48 05/22/17 12:48 05/22/17 12:48 Intake & Output 05/21/17 05/22/17 05/23/17 06:59 06:59 06:59 Intake Total 1560 1747 250 Output Total 750 Balance 810 1747 250 Weight 74.6 kg General appearance: PRESENT: no acute distress, cooperative, obese Head exam: PRESENT: normocephalic Eye exam: PRESENT: EOMI Mouth exam: PRESENT: moist, neck supple Neck exam: ABSENT: JVD Respiratory exam: PRESENT: clear to auscultation roxann Cardiovascular exam: PRESENT: RRR. ABSENT: gallop GI/Abdominal exam: PRESENT: normal bowel sounds, soft. ABSENT: distended Extremities exam: PRESENT: other - Trace pretibial edema Neurological exam: PRESENT: alert, awake, oriented to person, oriented to place , oriented to time, oriented to situation Skin exam: PRESENT: dry, warm. ABSENT: cyanosis Results Laboratory Results: 05/21/17 14:19 05/21/17 04:19 05/21/17 14:19 WBC 7.0 RBC 3.72 Hgb 9.0 L Hct 28.2 L MCV 76 L MCH 24.3 L MCHC 32.1 RDW 19.3 H Plt Count 142 L Impressions: Abdomen/Pelvis CT 05/19/17 19:19 IMPRESSION: NO SIGNIFICANT OR ACUTE FINDING IN THE ABDOMEN OR PELVIS ON CT SCAN WITH IV CONTRAST. Qualifiers PATEINT BEING DISCHARGED WITH ANY OF THE FOLLOWING DIAGNOSIS?: No Plan Discharge Plan: Follow-up with primary care physician in 1 week. Follow-up with Dr. Sherman in 1- 2 weeks. Time Spent: Less than 30 Minutes
== END 2017-05-22 13:24 | disposition other institution (70) | DRG 812 ==
LOC: EDBD → ER 17:08 → UNDOADMIN 21:28 → EH 21:28 → 3S 23:16 → EH 23:16 → 3S 23:55
PROVIDERS: ADMIT Family Medicine; ATTEND Family Medicine
PROC: 30233N1 Transfusion of Nonautologous Red Blood Cells into Peripheral Vein, Percutaneous Approach (ICD-10-PCS; 2017-05-19)
PROC: 30233N1 Transfusion of Nonautologous Red Blood Cells into Peripheral Vein, Percutaneous Approach (ICD-10-PCS; 2017-05-20)
PROC: 0DBP8ZX Excision of Rectum, Via Natural or Artificial Opening Endoscopic, Diagnostic (ICD-10-PCS; principal; 2017-05-21 11:00)
PROC: 0DBE8ZX Excision of Large Intestine, Via Natural or Artificial Opening Endoscopic, Diagnostic (ICD-10-PCS; 2017-05-21 11:00)
PROC: 0DB68ZX Excision of Stomach, Via Natural or Artificial Opening Endoscopic, Diagnostic (ICD-10-PCS; 2017-05-21 11:00)
PROC: 0D558ZZ Destruction of Esophagus, Via Natural or Artificial Opening Endoscopic (ICD-10-PCS; 2017-05-21 11:00)
DX: D64.89 Other specified anemias (principal); R19.5 Other fecal abnormalities; K22.70 Barrett's esophagus without dysplasia; K29.70 Gastritis, unspecified, without bleeding; K44.9 Diaphragmatic hernia without obstruction or gangrene; D17.79 Benign lipomatous neoplasm of other sites; K62.1 Rectal polyp; K64.8 Other hemorrhoids; K22.2 Esophageal obstruction; J44.9 Chronic obstructive pulmonary disease, unspecified; E78.5 Hyperlipidemia, unspecified; M19.90 Unspecified osteoarthritis, unspecified site; Z66 Do not resuscitate; Z79.82 Long term (current) use of aspirin; Z79.899 Other long term (current) drug therapy; Z90.49 Acquired absence of other specified parts of digestive tract; Z87.891 Personal history of nicotine dependence; Z88.8 Allergy status to other drugs, medicaments and biological substances
CPT/HCPCS: 36415; 36430; 43239; 43270; 45380; 45385; 74177; 80048; 80053; 82272; 82607; 82728; 82746; 83540; 83550; 83735; 84443; 84466; 85025; 85027; 85045; 85610; 85730; 86850; 86900; 86901; 86920; 88305; 94640; 99285; J0171; J1200; J1610; J2250; J2310; J2405; J3010; J3490; J7030; J7620; P9016; S0164

== ENCOUNTER 2019-06-28 10:31 | Emergency (ER) | payer MEDICARE ==
[2019-06-28] MEDS ORDERED: MAG HYDROX/AL HYDROX/SIMETH SUSP 30 ML UDCUP PO ONE (11:11)
[2019-06-28] MEDS ORDERED: LIDOCAINE 2% VISCOUS SOLN 20 ML UDCUP PO ONE (11:11)
[2019-06-28] MEDS ORDERED: METOCLOPRAMIDE HCL ORAL SOLN 10 MG/10 ML UDCUP PO ONE (11:11)
--- NOTE | 2019-06-28 11:13 | ER Document Report ---
ED Medical Screen (RME) - General Chief Complaint: Abdominal Pain Stated Complaint: STOMACH PAIN Time Seen by Provider: 06/28/19 11:08 Mode of Arrival: Wheelchair Information source: Patient, Relative Notes: This 83-year-old female presents emergency department with complaints of epigastric abdominal pain that started last night. Reports she took Pepto without relief of symptoms. Last bowel movement was this morning normal. Reports she feels nauseated has not vomited no fever. She reports this happened before and she took Pepto and it helped at this time it did not. Reports she is had her gallbladder removed. Epigastric area tender to palpate I have greeted and performed a rapid initial assessment of this patient. A comprehensive ED assessment and evaluation of the patient, analysis of test results and completion of the medical decision making process will be conducted by additional ED providers. Dictation of this chart was performed using voice recognition software; the refore, there may be some unintended grammatical errors. TRAVEL OUTSIDE OF THE [place] IN LAST 30 DAYS: No - Related Data Allergies/Adverse Reactions: povidone-iodine [From Betadine] Allergy (Verified 06/28/19 11:06) Soap [From Betadine] Allergy (Verified 06/28/19 11:06) soap [From Betadine] Allergy (Verified 06/28/19 11:06) prednisone Adverse Reaction (Verified 06/28/19 11:06) ankle/foot swelling Past Medical History - Past Medical History Cardiac Medical History: Reports: Hx Hypercholesterolemia Denies: Hx Atrial Fibrillation, Hx Congestive Heart Failure, Hx Coronary Artery Disease, Hx DVT, Hx Heart Attack, Hx Hypertension, Hx Pulmonary Embolism Pulmonary Medical History: Reports: Hx Bronchitis - None for 3 yrs, Hx COPD, Hx Pneumonia - "walking" yrs ago Denies: Hx Asthma, Hx Sleep Apnea Neurological Medical History: Denies: Hx Cerebrovascular Accident, Hx Seizures Endocrine Medical History: Denies: Hx Diabetes Mellitus Type 1, Hx Diabetes Mellitus Type 2, Hx Hyperthyroidism, Hx Hypothyroidism Renal/ Medical History: Denies: Hx Peritoneal Dialysis GI Medical History: Denies: Hx Cirrhosis, Hx Gastroesophageal Reflux Disease, Hx Hepatitis, Hx Hiatal Hernia, Hx Ulcer Musculoskeltal Medical History: Reports Hx Arthritis Psychiatric Medical History: Denies: Hx Depression Infectious Medical History: Denies: Hx Hepatitis Past Surgical History: Reports: Hx Cholecystectomy, Hx Orthopedic Surgery, Hx Tubal Ligation. Denies: Hx Mastectomy, Hx Open Heart Surgery, Hx Pacemaker - Immunizations Hx Diphtheria, Pertussis, Tetanus Vaccination: No Physical Exam - Vital signs Vitals: Temp Pulse Resp BP Pulse Ox 98.1 F 54 L 20 128/47 H 98 06/28/19 11:08 06/28/19 11:08 06/28/19 11:08 06/28/19 11:08 06/28/19 11:08 Course - Vital Signs Vital signs: Temp Pulse Resp BP Pulse Ox 98.1 F 54 L 20 128/47 H 98 06/28/19 11:08 06/28/19 11:08 06/28/19 11:08 06/28/19 11:08 06/28/19 11:08
[2019-06-28] MEDS ORDERED: ONDANSETRON 4 MG TAB.RAPDIS PO ONE (11:23)
--- NOTE | 2019-06-28 12:11 | RADIOLOGY REPORT (SQ) ---
EXAM DESCRIPTION: KUB/ABDOMEN (SINGLE VIEW) COMPLETED DATE/TIME: 06/28/2019 11:45 am REASON FOR STUDY: abd pain COMPARISON: 05/19/2017 NUMBER OF VIEWS: One view. TECHNIQUE: Supine radiographic image of the abdomen acquired. LIMITATIONS: None. FINDINGS: BOWEL GAS PATTERN: Normal bowel gas pattern. No dilated loops. Unremarkable fecal burden. CALCIFICATIONS: Scattered pelvic phleboliths. No radiopaque stones overlie kidneys or expected cours e of proximal ureters. SOFT TISSUES: No gross mass or suggestion of organomegaly. HARDWARE: Prior cholecystectomy. Single surgical clip within the pelvis. BONES: No acute bony abnormality. Thoracolumbar spondylosis and facet arthropathy. OTHER: No other significant finding. IMPRESSION: No evidence of acute intra-abdominal/pelvic process. Evidence of prior cholecystectomy. TECHNICAL DOCUMENTATION: JOB ID: [id number] [employer]- All Rights Reserved Reading location - IP/workstation name: [email or web address]
--- NOTE | 2019-06-28 12:22 | ER Document Report ---
ED General - General Mode of Arrival: Wheelchair TRAVEL OUTSIDE OF THE [place] IN LAST 30 DAYS: No <CRUZ HERNANDEZ - Last Filed: 06/28/19 19:56> <BACILIO ALEJANDRA - Last Filed: 06/28/19 21:47> - General Chief Complaint: Abdominal Pain Stated Complaint: STOMACH PAIN Time Seen by Provider: 06/28/19 11:08 Primary Care Provider: STORMY HEAD MD [ACTIVE STAFF] - Follow up as needed BETO MONTANA MD [Primary Care Provider] - 06/30/19 - HPI Notes: Patient is an 83-year-old female with history of cholecystectomy, Chowdhury's esophagus, and hypercholesterolemia who presents complaining of intermittent epigastric abdominal pain that is been present since her gallbladder was taken out several years ago. Patient states that last night she had an episode of pain that was worse than others which prompted her to come here this morning. Patient states that she is currently feeling well after receiving a GI cocktail and Zofran. Pain does not radiate. She is able to eat and drink without difficulty. She is urinating normally and having normal bowel movements. She has not had any melena or hematochezia. Patient states that she had an endoscopy performed 2 years ago. She has not had any trouble swallowing. No recent illness. Denies any headache, fever, neck pain, URI, sore throat, chest pain, palpitations, syncope, cough, shortness of breath, wheeze, dyspnea, nausea/vomiting/diarrhea, urinary retention, dysuria, hematuria, back pain, or rash. (CRUZ HERNANDEZ) - Related Data Allergies/Adverse Reactions: povidone-iodine [From Betadine] Allergy (Verified 06/28/19 11:06) Soap [From Betadine] Allergy (Verified 06/28/19 11:06) soap [From Betadine] Allergy (Verified 06/28/19 11:06) prednisone Adverse Reaction (Verified 06/28/19 11:06) ankle/foot swelling Past Medical History - General Information source: Patient, Relative - Social History Smoking Status: Current Every Day Smoker Chew tobacco use (# tins/day): No Frequency of alcohol use: None Drug Abuse: None Family History: Reviewed & Not Pertinent Patient has suicidal ideation: No Patient has homicidal ideation: No - Past Medical History Cardiac Medical History: Reports: Hx Hypercholesterolemia Denies: Hx Atrial Fibrillation, Hx Congestive Heart Failure, Hx Coronary Artery Disease, Hx DVT, Hx Heart Attack, Hx Hypertension, Hx Pulmonary Embolism Pulmonary Medical History: Reports: Hx Bronchitis - None for 3 yrs, Hx COPD, Hx Pneumonia - "walking" yrs ago Denies: Hx Asthma, Hx Sleep Apnea Neurological Medical History: Denies: Hx Cerebrovascular Accident, Hx Seizures Endocrine Medical History: Denies: Hx Diabetes Mellitus Type 1, Hx Diabetes Mellitus Type 2, Hx Hyperthyroidism, Hx Hypothyroidism Renal/ Medical History: Denies: Hx Peritoneal Dialysis GI Medical History: Denies: Hx Cirrhosis, Hx Gastroesophageal Reflux Disease, Hx Hepatitis, Hx Hiatal Hernia, Hx Ulcer Musculoskeletal Medical History: Reports Hx Arthritis Psychiatric Medical History: Denies: Hx Depression Infectious Medical History: Denies: Hx Hepatitis Past Surgical History: Reports: Hx Cholecystectomy, Hx Orthopedic Surgery, Hx Tubal Ligation. Denies: Hx Mastectomy, Hx Open Heart Surgery, Hx Pacemaker - Immunizations Hx Diphtheria, Pertussis, Tetanus Vaccination: No Hx Pneumococcal Vaccination: 05/30/07 <CRUZ HERNANDEZ - Last Filed: 06/28/19 19:56> Review of Systems - Review of Systems -: Yes All other systems reviewed and negative <CRUZ HERNANDEZ - Last Filed: 06/28/19 19:56> Physical Exam <CRUZ HERNANDEZ - Last Filed: 06/28/19 19:56> - Vital signs Vitals: Temp Pulse Resp BP Pulse Ox 98.1 F 54 L 20 128/47 H 98 06/28/19 11:08 06/28/19 11:08 06/28/19 11:08 06/28/19 11:08 06/28/19 11:08 - Notes Notes: PHYSICAL EXAMINATION: GENERAL: Well-appearing, well-nourished and in no acute distress. HEAD: Atraumatic, normocephalic. EYES: Pupils equal round and reactive to light, extraocular movements intact, sclera anicteric, conjunctiva are normal. ENT: Nares patent and without discharge. oropharynx clear without exudates. No tonsilar hypertrophy or erythema. Moist mucous membranes. NECK: Normal range of motion, supple without lymphadenopathy LUNGS: Breath sounds clear to auscultation bilaterally and equal. No wheezes rales or rhonchi. HEART: Regular rate and rhythm without murmurs, rubs, gallops. ABDOMEN: Soft, nondistended abdomen. No guarding, no rebound. Normal bowel sounds present. No CVA tenderness bilaterally. Very mild to no tenderness to epigastrum. No lower abd tenderness. Rectal (Jerry, female tech with me): stool light brown and neg guiac. Musculoskeletal: FROM to passive/active. Strength 5+/5. Extremities: No cyanosis, clubbing, or edema b/l. Peripheral pulses 2+. Capillary refill less than 3 seconds. NEUROLOGICAL: Normal speech, normal gait. PSYCH: Normal mood, normal affect. SKIN: Warm, Dry, normal turgor, no rashes or lesions noted. (CRUZ HERNANDEZ) Course - Laboratory Result Diagrams: 06/28/19 11:45 06/28/19 11:45 - EKG Interpretation by Me EKG shows normal: Sinus rhythm, ST-T Waves - no changes Rate: Normal Rhythm: NSR <CRUZ HERNANDEZ - Last Filed: 06/28/19 19:56> - Laboratory Result Diagrams: 06/28/19 11:45 06/28/19 11:45 <BACILIO ALEJANDRA - Last Filed: 06/28/19 21:47> - Re-evaluation Re-evalutation: 06/28/19 14:50 I did review this with Dr. Canales regarding the elevated LFT's and CT findings of 1.3cm CBD and mild ductal dilatation in liver. He states that it can be normal for the CBD to be around 1cm post surgery. Recommends MRCP. If MRCP negative, f/u with them or GI. If + transfer for ERCP. 06/28/19 20:05 Patient is an afebrile, well-hydrated, 83-year-old female who presents with epigastric abdominal pain. Vitals are currently acceptable without significant tachycardia, tachypnea, or hypoxia. PE is otherwise unremarkable. Patient has an MRI pending to further evaluate the common bile duct. I do suspect this to be gastritis versus GERD if negative. If the result is positive she may be transferred for ERCP. Patient has currently received 1 unit of blood in the second unit is currently running. Patient is otherwise nontoxic-appearing. She has not had any new concerns or complaints. Labs are otherwise acceptable at this time. No further work-up warranted. Pending discharge, I do recommend she follow-up with her family doctor this week and with GI/general surgery next week. She is to return with any other worsening/concerning symptoms otherwise. Patient/family in agreement. Patient care transferred to Shelbie Alejandra DIRECTOR AUTOMOTIVE to review MRI and give final dispo. (CRUZ HERNANDEZ) - Vital Signs Vital signs: Temp Pulse Resp BP Pulse Ox 98.7 F 67 18 95/78 L 97 06/28/19 20:42 06/28/19 20:42 06/28/19 20:42 06/28/19 20:42 06/28/19 20:42 - Laboratory Laboratory results interpreted by me: 06/28/19 06/28/19 06/28/19 11:45 11:45 13:12 RBC 3.18 L Hgb 6.9 L Hct 22.6 L MCV 71 L MCH 21.6 L MCHC 30.3 L RDW 18.8 H Est GFR ( Amer) 52 L Est GFR (MDRD) Non-Af 43 L Glucose 142 H Total Bilirubin 1.6 H Direct Bilirubin 1.2 H AST 148 H Alkaline Phosphatase 184 H Urine Protein Urine Blood Urine Urobilinogen Ur Leukocyte Esterase Crossmatch See Detail 06/28/19 14:10 RBC Hgb Hct MCV MCH MCHC RDW Est GFR ( Amer) Est GFR (MDRD) Non-Af Glucose Total Bilirubin Direct Bilirubin AST Alkaline Phosphatase Urine Protein 30 H Urine Blood SMALL H Urine Urobilinogen 2.0 H Ur Leukocyte Esterase SMALL H Crossmatch Discharge <CRUZ HERNANDEZ - Last Filed: 06/28/19 19:56> <BACILIO ALEJANDRA - Last Filed: 06/28/19 21:47> - Discharge Clinical Impression: Epigastric abdominal pain Condition: Stable Disposition: HOME, SELF-CARE Additional Instructions: Maintain adequate fluid and food intake Non-fatty diet. No greasy foods. Tylenol if needed Monitor for any worsening symptoms Make sure you are staying hydrated enough to urinate and have normal BM's Recheck with your PCM in 1-2 days Schedule consult with Gastroenterology/General Surgeon for possible EGD and further evaluation. Return to the ED with any worsening symptoms and/or development of fever, headache, chest pain, palpitations, syncope, shortness of breath, trouble breathing, abdominal pain, n/v/d, blood in stool/urine, weakness, or other worsening symptoms that are concerning to you. Referrals: STORMY HEAD MD [ACTIVE STAFF] - Follow up as needed BETO MONTANA MD [Primary Care Provider] - 06/30/19
[2019-06-28 12:24] LABS: ABSOLUTE BASOPHILS # (AUTO) 0.1 10^3/uL (0.0-0.2); ABSOLUTE MONOCYTES (AUTO) 0.6 10^3/uL (0.1-1.4); BASOPHILS % (AUTO) 1.3 % (0-2); EOSINOPHILS % (AUTO) 0.5 % (0-6); HEMATOCRIT 22.6 % (36.0-47.0); LYMPHOCYTES % (AUTO) 21.2 % (13-45); MEAN CORPUSCULAR HEMOGLOBIN 21.6 pg (27.0-33.4); MEAN CORPUSCULAR HGB CONC 30.3 g/dL (32.0-36.0); MEAN CORPUSCULAR VOLUME 71 fl (80-97); MONOCYTES % (AUTO) 12.1 % (3-13); PLATELET COUNT 197 10^3/uL (150-450); RED BLOOD COUNT 3.18 10^6/uL (3.72-5.28); RED CELL DISTRIBUTION WIDTH 18.8 % (11.5-14.0); SEGMENTED NEUTROPHILS % (AUTO) 64.9 % (42-78); TOTAL CELLS COUNTED % (AUTO) 100 %; WHITE BLOOD COUNT 4.6 10^3/uL (4.0-10.5)
[2019-06-28 12:27] LABS: HEMOGLOBIN 6.9 g/dL (12.0-15.5)
[2019-06-28] MEDS ORDERED: NORMAL SALINE 250 ML IV PRN (12:43)
[2019-06-28 12:46] LABS: ALBUMIN 3.9 g/dL (3.5-5.0); ALKALINE PHOSPHATASE 184 U/L (38-126); ANION GAP 11 (5-19); ASPARTATE AMINO TRANSFERASE 148 U/L (14-36); BILIRUBIN,DIRECT 1.2 mg/dL (0.0-0.4); BILIRUBIN,TOTAL 1.6 mg/dL (0.2-1.3); BLOOD UREA NITROGEN 18 mg/dL (7-20); CALCIUM 9.3 mg/dL (8.4-10.2); CARBON DIOXIDE 23 mmol/L (22-30); CHLORIDE 107 mmol/L (98-107); GLUCOSE 142 mg/dL (75-110); POTASSIUM 3.9 mmol/L (3.6-5.0); TOTAL PROTEIN 6.6 g/dL (6.3-8.2)
--- NOTE | 2019-06-28 14:30 | RADIOLOGY REPORT (SQ) ---
EXAM DESCRIPTION: CT ABD/PELVIS WITH IV ONLY COMPLETED DATE/TIME: 06/28/2019 2:01 pm REASON FOR STUDY: abd pain COMPARISON: 05/19/2017 TECHNIQUE: CT scan of the abdomen and pelvis performed using helical scanning technique with dynamic intravenous contrast injection. No oral contrast. Images reviewed with lung, soft tissue, and bone windows. Reconstructed coronal and sagittal MPR images reviewed. Delayed images for evaluation of the urinary system also acquired. All images stored on PACS. All CT scanners at this facility use dose modulation, iterative reconstruction, and/or weight based d osing when appropriate to reduce radiation dose to as low as reasonably achievable (ALARA). [facility]: Dose Right [facility]: CareDose [facility]: Dose Right [facility]: Teradose 4D [facility]: ME911 CONTRAST TYPE AND DOSE: contrast/concentration: Isovue 350.00 mg/ml; Total Contrast Delivered: 86.0 ml; Total Saline Delivered: 22.3 ml RENAL FUNCTION: GFR > 60. RADIATION DOSE: CT Rad equipment meets quality standard of care and radiation dose reduction techniq ues were employed. CTDIvol: 8.4 - 11.8 mGy. DLP: 1625 mGy-cm.. LIMITATIONS: None. FINDINGS: LOWER CHEST: No significant findings. No nodules or infiltrates. LIVER: Normal size. No masses. No dilated ducts. SPLEEN: Normal size. No focal lesions. PANCREAS: No masses. No significant calcifications. No adjacent inflammation or peripancreatic fluid collections. Pancreatic duct not dilated. GALLBLADDER: The gallbladder is surgically absent, as on prior examination, however there is new intr a and extra hepatic biliary ductal dilation, the common bile duct measuring up to 1.3 cm. There is n o obvious obstructing lesion to the ampulla. ADRENAL GLANDS: No significant masses or asymmetry. RIGHT KIDNEY AND URETER: No solid masses. No significant calcifications. No hydronephrosis or hyd roureter. LEFT KIDNEY AND URETER: No solid masses. No significant calcifications. No hydronephrosis or hydr oureter. AORTA AND VESSELS: No aneurysm. No dissection. Renal arteries, SMA, celiac without stenosis. Calcifi c atherosclerosis. RETROPERITONEUM: No retroperitoneal adenopathy, hemorrhage or masses. BOWEL AND PERITONEAL CAVITY: No masses or inflammatory changes. No free fluid or peritoneal masses. APPENDIX: Normal. PELVIS: No mass. No free fluid. Normal bladder. ABDOMINAL WALL: No masses. No hernias. BONES: No significant or acute findings. OTHER: No other significant finding. IMPRESSION: The gallbladder is surgically absent, as on prior examination, however there is new intr a and extra hepatic biliary ductal dilation, the common bile duct measuring up to 1.3 cm. There is no obvious obstructing lesion to the ampulla. Consider endoscopy/ERCP to further evaluate. TECHNICAL DOCUMENTATION: JOB ID: [id number] Quality ID # [id number]: Final reports with documentation of one or more dose reduction techniques (e.g., Au tomated exposure control, adjustment of the mA and/or kV according to patient size, use of iterative reconstruction technique) 2010 [employer]- All Rights Reserved Reading location - IP/workstation name: [email or web address]
[2019-06-28 14:31] LABS: APPEARANCE,URINE SLIGHTLY-CLOUDY; BILIRUBIN,URINE NEGATIVE (NEGATIVE); COLOR,URINE AMBER; GLUCOSE, URINE NEGATIVE (NEGATIVE); KETONES,URINE NEGATIVE (NEGATIVE); LEUKOCYTE ESTERASE,URINE SMALL (NEGATIVE); NITRITE,URINE NEGATIVE (NEGATIVE); PROTEIN,URINE 30 mg/dL (NEGATIVE); URINE SPECIFIC GRAVITY 1.021
--- NOTE | 2019-06-28 19:09 | EKG REPORT ---
SEVERITY:- ABNORMAL ECG - SINUS RHYTHM PROBABLE LEFT ATRIAL ABNORMALITY CONSIDER POSTERIOR INFARCT NONSPECIFIC REPOL ABNORMALITY, DIFFUSE LEADS : Confirmed by: Esequiel Ulloa MD 28-Jun-2019 19:08:15
--- NOTE | 2019-06-28 20:37 | RADIOLOGY REPORT (SQ) ---
NAME: AYAN SINHA PROCEDURE: MR ABDOMEN WITHOUT IV CONTRAST ORDER DATE: 06/28/2019 2:48 PM CDT ACCESSION NUMBER: [id number] CLINICAL HISTORY: eval CBD, elevated bili, abd pain COMPARISON: None. TECHNIQUE: MRCP of the abdomen was obtained utilizing T1 and T2 weighted pulse sequences, without and with fat saturation with HASTE and in and out of phase imaging in the axial and coronal planes with maximal intensity projections (MIPS) of the biliary tree. FINDINGS: Liver demonstrates scattered tiny cysts. Surgically absent gallbladder. There is mild intra and extrahepatic biliary dilatation. Common bile duct measures up to 5.5 mm. Common bile duct measured [address] of the abdomen and pelvis from today. There a possible small stones in the common bile duct. Pancreatic duct is not dilated. Multiple renal cysts noted bilaterally. No hydronephrosis. Spleen is small and unremarkable. IMPRESSION: 1. MRCP confirms intra-axial hepatic biliary dilatation. However, the biliary dilatation appears significantly improved compared to a CT abdomen pelvis from today. It is possible that the patient recently passed a common bile duct stone. The MRCP suggests presence of small stones in the common bile duct. Recommend follow-up with ERCP.
[2019-06-28] MEDS ORDERED: MORPHINE SULFATE 10 MG/ML INJ ONE (21:18)
[2019-06-28 22:15] VITALS: BP 95/68
== END 2019-06-28 22:15 | disposition home or self-care (01) ==
LOC: ER 10:31
DX: R10.13 Epigastric pain (principal); R10.816 Epigastric abdominal tenderness; R79.89 Other specified abnormal findings of blood chemistry; F17.200 Nicotine dependence, unspecified, uncomplicated; J44.9 Chronic obstructive pulmonary disease, unspecified; Z90.49 Acquired absence of other specified parts of digestive tract; Z87.19 Personal history of other diseases of the digestive system; Z88.3 Allergy status to other anti-infective agents
CPT/HCPCS: 93005; 99284; 96360; 96361; 86900; 86901; 36415; 36430; 86850; 83690; 85025; 80053; 81001; 84484; 86920; 74181; 74018; 74177; 93010; P9016; A9270 ×3; J3490; J7050; S0119

== ENCOUNTER 2019-10-13 16:47 | Emergency (ER) | payer MEDICARE ==
--- NOTE | 2019-10-13 17:58 | ER Document Report ---
ED Neuro Symptoms/Deficit - General Chief Complaint: Vertigo Stated Complaint: POSSIBLE VERTIGO, HEADACHES Time Seen by Provider: 10/13/19 17:52 Primary Care Provider: CHAPIS TAMEZ PA-C [Primary Care Provider] - Follow up as needed Mode of Arrival: Ambulatory Information source: Patient Notes: 83-year-old female presented to ED for dizziness vertigo headache and unsteady on her feet starting the morning when she woke up. She states she had a cold last week sometimes went to Dr. Graham he gave her Z-Geremias which she finished on Wednesday. She states she woke up yesterday morning and this morning soaked in sweat yesterday was worse than the day. She denies any fevers either day. She is alert oriented respirations regular nonlabored speaking in full sentences. I have greeted and performed a rapid initial assessment of this patient. A comprehensive ED assessment and evaluation of the patient, analysis of test results and completion of medical decision making process will be conducted by an additional ED providers. TRAVEL OUTSIDE OF THE [place] IN LAST 30 DAYS: No - HPI Patient complains to provider of: Weakness, Other - Unsteady on her feet. No: Difficulty standing, Difficulty walking, Facial Droop, Falling, Paralysis, Paresthesia, Speech Impairment Onset: Yesterday Awoke with symptoms: Yes Exact time of onset: Yesterday morning Symptoms are: Worse/persistent Duration: Continues in ED - Related Data Allergies/Adverse Reactions: povidone-iodine [From Betadine] Allergy (Verified 06/28/19 11:06) Soap [From Betadine] Allergy (Verified 06/28/19 11:06) soap [From Betadine] Allergy (Verified 06/28/19 11:06) prednisone Adverse Reaction (Verified 06/28/19 11:06) ankle/foot swelling Past Medical History - Social History Family History: Reviewed & Not Pertinent - Past Medical History Cardiac Medical History: Reports: Hx Hypercholesterolemia Denies: Hx Atrial Fibrillation, Hx Congestive Heart Failure, Hx Coronary Artery Disease, Hx DVT, Hx Heart Attack, Hx Hypertension, Hx Pulmonary Embolism Pulmonary Medical History: Reports: Hx Bronchitis - None for 3 yrs, Hx COPD, Hx Pneumonia - "walking" yrs ago Denies: Hx Asthma, Hx Sleep Apnea Neurological Medical History: Denies: Hx Cerebrovascular Accident, Hx Seizures Endocrine Medical History: Denies: Hx Diabetes Mellitus Type 1, Hx Diabetes Mellitus Type 2, Hx Hyperthyroidism, Hx Hypothyroidism Renal/ Medical History: Denies: Hx Peritoneal Dialysis GI Medical History: Denies: Hx Cirrhosis, Hx Gastroesophageal Reflux Disease, Hx Hepatitis, Hx Hiatal Hernia, Hx Ulcer Musculoskeletal Medical History: Reports Hx Arthritis Psychiatric Medical History: Denies: Hx Depression Infectious Medical History: Denies: Hx Hepatitis Past Surgical History: Reports: Hx Cholecystectomy, Hx Orthopedic Surgery, Hx Tubal Ligation. Denies: Hx Mastectomy, Hx Open Heart Surgery, Hx Pacemaker - Immunizations Hx Diphtheria, Pertussis, Tetanus Vaccination: No Hx Pneumococcal Vaccination: 05/30/07 Physical Exam - Vital signs Vitals: Temp Pulse Resp BP Pulse Ox 98.7 F 72 16 134/73 H 96 10/13/19 17:19 10/13/19 17:19 10/13/19 17:19 10/13/19 17:19 10/13/19 17:19 Course - Vital Signs Vital signs: Temp Pulse Resp BP Pulse Ox 98.7 F 72 16 134/73 H 96 10/13/19 17:19 10/13/19 17:19 10/13/19 17:19 10/13/19 17:19 10/13/19 17:19 Discharge - Discharge Referrals: CHAPIS TAMEZ PA-C [Primary Care Provider] - Follow up as needed
--- NOTE | 2019-10-13 18:00 | ER Document Report ---
ED Medical Screen (RME) - General Chief Complaint: Dizziness Stated Complaint: POSSIBLE VERTIGO, HEADACHES Time Seen by Provider: 10/13/19 17:52 Primary Care Provider: CHAPIS TAMEZ PA-C [Primary Care Provider] - Follow up as needed Mode of Arrival: Ambulatory Notes: 83-year-old female presented to ED for dizziness vertigo headache and unsteady on her feet starting the morning when she woke up. She states she had a cold last week sometimes went to Dr. Graham he gave her Z-Geremias which she finished on Wednesday. She states she woke up yesterday morning and this morning soaked in sweat yesterday was worse than the day. She denies any fevers either day. She is alert oriented respirations regular nonlabored speaking in full sentences. I have greeted and performed a rapid initial assessment of this patient. A comprehensive ED assessment and evaluation of the patient, analysis of test results and completion of medical decision making process will be conducted by an additional ED providers. TRAVEL OUTSIDE OF THE [place] IN LAST 30 DAYS: No - HPI Onset: Yesterday Onset/Duration: Persistent Quality of pain: Achy Severity: Moderate Pain Level: 3 Associated Symptoms: Headache Exacerbated by: Denies Relieved by: Denies Similar symptoms previously: Yes Recently seen / treated by doctor: Yes - Related Data Smoking: Cigarettes - 4 or 5 cigarettes a day Frequency of alcohol use: None Drug Abuse: None Allergies/Adverse Reactions: povidone-iodine [From Betadine] Allergy (Verified 06/28/19 11:06) Soap [From Betadine] Allergy (Verified 06/28/19 11:06) soap [From Betadine] Allergy (Verified 06/28/19 11:06) prednisone Adverse Reaction (Verified 06/28/19 11:06) ankle/foot swelling Past Medical History - Social History Frequency of alcohol use: None Drug Abuse: None - Past Medical History Cardiac Medical History: Reports: Hx Hypercholesterolemia Denies: Hx Atrial Fibrillation, Hx Congestive Heart Failure, Hx Coronary Artery Disease, Hx DVT, Hx Heart Attack, Hx Hypertension, Hx Pulmonary Embolism Pulmonary Medical History: Reports: Hx Bronchitis - None for 3 yrs, Hx COPD, Hx Pneumonia - "walking" yrs ago Denies: Hx Asthma, Hx Sleep Apnea Neurological Medical History: Denies: Hx Cerebrovascular Accident, Hx Seizures Endocrine Medical History: Denies: Hx Diabetes Mellitus Type 1, Hx Diabetes Mellitus Type 2, Hx Hyperthyroidism, Hx Hypothyroidism Renal/ Medical History: Denies: Hx Peritoneal Dialysis GI Medical History: Denies: Hx Cirrhosis, Hx Gastroesophageal Reflux Disease, Hx Hepatitis, Hx Hiatal Hernia, Hx Ulcer Musculoskeltal Medical History: Reports Hx Arthritis Psychiatric Medical History: Denies: Hx Depression Infectious Medical History: Denies: Hx Hepatitis Past Surgical History: Reports: Hx Cholecystectomy, Hx Orthopedic Surgery, Hx Tubal Ligation. Denies: Hx Mastectomy, Hx Open Heart Surgery, Hx Pacemaker - Immunizations Hx Diphtheria, Pertussis, Tetanus Vaccination: No Physical Exam - Vital signs Vitals: Temp Pulse Resp BP Pulse Ox 98.7 F 72 16 134/73 H 96 10/13/19 17:19 10/13/19 17:19 10/13/19 17:19 10/13/19 17:19 10/13/19 17:19 Course - Vital Signs Vital signs: Temp Pulse Resp BP Pulse Ox 98.7 F 72 16 134/73 H 96 10/13/19 17:19 10/13/19 17:19 10/13/19 17:19 10/13/19 17:19 10/13/19 17:19 Doctor's Discharge - Discharge Referrals: CHAPIS TAMEZ PA-C [Primary Care Provider] - Follow up as needed
[2019-10-13 18:58] LABS: ABSOLUTE BASOPHILS # (AUTO) 0.1 10^3/uL (0.0-0.2); ABSOLUTE EOSINOPHILS # (AUTO) 0.1 10^3/uL (0.0-0.6); ABSOLUTE LYMPHOCYTES (AUTO) 1.9 10^3/uL (0.5-4.7); ABSOLUTE MONOCYTES (AUTO) 0.7 10^3/uL (0.1-1.4); ABSOLUTE NEUT (AUTO) 5.5 10^3/uL (1.7-8.2); BASOPHILS % (AUTO) 0.6 % (0-2); HEMATOCRIT 43.2 % (36.0-47.0); HEMOGLOBIN 14.4 g/dL (12.0-15.5); LYMPHOCYTES % (AUTO) 23.2 % (13-45); MEAN CORPUSCULAR HEMOGLOBIN 30.1 pg (27.0-33.4); MEAN CORPUSCULAR HGB CONC 33.4 g/dL (32.0-36.0); MEAN CORPUSCULAR VOLUME 90 fl (80-97); PLATELET COUNT 179 10^3/uL (150-450); RED BLOOD COUNT 4.79 10^6/uL (3.72-5.28); RED CELL DISTRIBUTION WIDTH 22.1 % (11.5-14.0); SEGMENTED NEUTROPHILS % (AUTO) 66.2 % (42-78); TOTAL CELLS COUNTED % (AUTO) 100 %; WHITE BLOOD COUNT 8.3 10^3/uL (4.0-10.5)
[2019-10-13 19:01] LABS: INTERNATIONAL RATION (INR) 1.09; PROTHROMBIN TIME 14.1 SEC (11.4-15.4)
[2019-10-13 19:02] LABS: APPEARANCE,URINE CLEAR; BILIRUBIN,URINE NEGATIVE (NEGATIVE); COLOR,URINE YELLOW; GLUCOSE, URINE NEGATIVE (NEGATIVE); KETONES,URINE NEGATIVE (NEGATIVE); PROTEIN,URINE NEGATIVE (NEGATIVE); URINE SPECIFIC GRAVITY 1.018; UROBILINOGEN,URINE NEGATIVE mg/dL (<2.0)
--- NOTE | 2019-10-13 19:10 | RADIOLOGY REPORT (SQ) ---
EXAM DESCRIPTION: CT HEAD WITHOUT COMPLETED DATE/TIME: 10/13/2019 6:50 pm REASON FOR STUDY: headache dizziness unsteady on her feet COMPARISON: None. TECHNIQUE: Axial images acquired through the brain without intravenous contrast. Images reviewed wi th bone, brain and subdural windows. Additional sagittal and coronal reconstructions were generated. Images stored on PACS. All CT scanners at this facility use dose modulation, iterative reconstruction, and/or weight based d osing when appropriate to reduce radiation dose to as low as reasonably achievable (ALARA). [facility]: Dose Right [facility]: CareDose [facility]: Dose Right [facility]: Teradose 4D [facility]: Smart [employer] Mode RADIATION DOSE: CT Rad equipment meets quality standard of care and radiation dose reduction techniq ues were employed. CTDIvol: 53.2 mGy. DLP: 937 mGy-cm. mGy. LIMITATIONS: None. FINDINGS: VENTRICLES: Normal size and contour. CEREBRUM: No masses. No hemorrhage. No midline shift. No evidence for acute infarction. Areas of l ow density in the white matter most likely chronic small vessel ischemic changes. CEREBELLUM: No masses. No hemorrhage. No alteration of density. No evidence for acute infarction. EXTRAAXIAL SPACES: No fluid collections. No masses. ORBITS AND GLOBE: No intra- or extraconal masses. Normal contour of globe without masses. CALVARIUM: No fracture. PARANASAL SINUSES: Mucous retention cyst in the right maxillary sinus. SOFT TISSUES: No mass or hematoma. OTHER: No other significant finding. IMPRESSION: CHRONIC MICROVASCULAR ISCHEMIA. NO ACUTE IMAGING FINDINGS IN THE BRAIN. EVIDENCE OF ACUTE STROKE: NO. COMMENT: Quality ID # 436: Final reports with documentation of one or more dose reduction techniques (e.g., Automated exposure control, adjustment of the mA and/or kV according to patient size, use of iterative reconstruction technique) TECHNICAL DOCUMENTATION: JOB ID: [id number] 2010 [employer]- All Rights Reserved Reading location - IP/workstation name: [email or web address]
[2019-10-13 19:23] LABS: ALKALINE PHOSPHATASE 82 U/L (38-126); ANION GAP 8 (5-19); ASPARTATE AMINO TRANSFERASE 23 U/L (14-36); BILIRUBIN,TOTAL 0.3 mg/dL (0.2-1.3); BLOOD UREA NITROGEN 24 mg/dL (7-20); CALCIUM 9.6 mg/dL (8.4-10.2); CARBON DIOXIDE 25 mmol/L (22-30); CHLORIDE 104 mmol/L (98-107); GLUCOSE 97 mg/dL (75-110); POTASSIUM 4.4 mmol/L (3.6-5.0); TOTAL PROTEIN 6.8 g/dL (6.3-8.2)
[2019-10-13 19:24] LABS: ANISOCYTOSIS 3+; TOXIC GRANULATION SLIGHT
[2019-10-13 19:25] LABS: OVALOCYTES SLIGHT; POIKILOCYTOSIS SLIGHT; TEAR DROP CELLS SLIGHT
[2019-10-13 19:27] LABS: PLATELET COMMENT ADEQUATE
[2019-10-13] MEDS ORDERED: AMOXICILLIN TR/POT CLAVULANATE 500-125 MG TAB PO ONE (22:16)
[2019-10-13] MEDS ORDERED: ACETAMINOPHEN 325 MG TABLET PO ONE (22:34)
[2019-10-13 22:58] VITALS: BP 160/88
--- NOTE | 2019-10-13 23:25 | ER Document Report ---
ED General - General Chief Complaint: Dizziness Stated Complaint: POSSIBLE VERTIGO, HEADACHES Time Seen by Provider: 10/13/19 17:52 Primary Care Provider: CHAPIS TAMEZ PA-C [Primary Care Provider] - Follow up as needed Mode of Arrival: Ambulatory TRAVEL OUTSIDE OF THE [place] IN LAST 30 DAYS: No - HPI Notes: 83-year-old female treated by her primary care physician within the last week with a Z-Geremias for sinus infection and cough. She is having some dull headache today and has had several episodes of acute vertigo with changes in position. She denies fever chills or vomiting. No focal neurologic symptoms. No impairment of vision or speech. Denies prior episodes of vertigo. Her vertigo is described as sensation of the room spinning which is most prominent when she goes from a lying to a sitting or standing position. This lasts intensely for a few seconds. Associated nausea. She vomited once earlier today large amount. - Related Data Allergies/Adverse Reactions: povidone-iodine [From Betadine] Allergy (Verified 06/28/19 11:06) Soap [From Betadine] Allergy (Verified 06/28/19 11:06) soap [From Betadine] Allergy (Verified 06/28/19 11:06) prednisone Adverse Reaction (Verified 06/28/19 11:06) ankle/foot swelling Past Medical History - General Information source: Patient, Relative - Social History Smoking Status: Current Every Day Smoker Frequency of alcohol use: None Drug Abuse: None Family History: Reviewed & Not Pertinent Patient has suicidal ideation: No Patient has homicidal ideation: No - Past Medical History Cardiac Medical History: Reports: Hx Hypercholesterolemia Denies: Hx Atrial Fibrillation, Hx Congestive Heart Failure, Hx Coronary Artery Disease, Hx DVT, Hx Heart Attack, Hx Hypertension, Hx Pulmonary Embolism Pulmonary Medical History: Reports: Hx Bronchitis - None for 3 yrs, Hx COPD, Hx Pneumonia - "walking" yrs ago Denies: Hx Asthma, Hx Sleep Apnea Neurological Medical History: Denies: Hx Cerebrovascular Accident, Hx Seizures Endocrine Medical History: Denies: Hx Diabetes Mellitus Type 1, Hx Diabetes Elissa litus Type 2, Hx Hyperthyroidism, Hx Hypothyroidism Renal/ Medical History: Denies: Hx Peritoneal Dialysis GI Medical History: Denies: Hx Cirrhosis, Hx Gastroesophageal Reflux Disease, Hx Hepatitis, Hx Hiatal Hernia, Hx Ulcer Musculoskeletal Medical History: Reports Hx Arthritis Psychiatric Medical History: Denies: Hx Depression Infectious Medical History: Denies: Hx Hepatitis Past Surgical History: Reports: Hx Cholecystectomy, Hx Orthopedic Surgery, Hx Tubal Ligation. Denies: Hx Mastectomy, Hx Open Heart Surgery, Hx Pacemaker - Immunizations Hx Diphtheria, Pertussis, Tetanus Vaccination: No Hx Pneumococcal Vaccination: 05/30/07 Review of Systems - Review of Systems Notes: Constitutional: Negative for fever. HENT: Bilateral hearing loss with use of hearing aids. Eyes: Negative for visual changes. Cardiovascular: Negative for chest pain. Respiratory: Nonproductive cough. Gastrointestinal: Negative for abdominal pain, vomiting or diarrhea. Genitourinary: Negative for dysuria. Musculoskeletal: Negative for back pain. Skin: Negative for rash. Neurological: As per HPI. 10 point ROS negative except as marked above and in HPI. Physical Exam - Vital signs Vitals: Temp Pulse Resp BP Pulse Ox 98.7 F 72 16 134/73 H 96 10/13/19 17:19 10/13/19 17:19 10/13/19 17:19 10/13/19 17:19 10/13/19 17:19 - Notes Notes: GENERAL: Elderly female with profound hearing impairment. Appears comfortable at this time. SKIN: Good turgor no rashes. HEAD: Normocephalic atraumatic. Mild tenderness to percussion over both maxillary sinuses. EYES: PERRLA. EOMI with horizontal nystagmus on lateral gaze to the right. Conjunctivae and sclerae clear. EARS: Profound bilateral hearing impairment. CANALS AND TMS CLEAR. Bilateral hearing aids present. NOSE: Boggy nasal turbinates. MOUTH: Moist mucosa. Good dentition. No stridor or edema. No drooling. NECK: Supple. No masses or thyromegaly. No adenopathy. Carotids 2+ without bruits. No JVD. BACK: Symmetrical without tenderness. CHEST: Rattling cough. Respirations unlabored. Breath sounds clear and symmetrical. HEART: Regular rhythm. No murmur gallop or rub. ABDOMEN: Soft nontender without masses, organomegaly or rebound. Bowel sounds normally active. No bruits. GENITALIA: Deferred. EXTREMITIES: No edema. No calf tenderness. Cap refill less than 1.5 seconds. Dorsalis pedis and posterior tibial pulses 3+ and symmetrical. NEUROLOGICAL: GCS 15. Alert and oriented x3. Normal gait. Fluent speech. Cranial nerves II through XII intact. Sensorimotor and cerebellar normal. Normal tone. PSYCHIATRIC: Appropriate affect. Course - Re-evaluation Re-evalutation: 10/13/19 23:24 Findings are consistent with peripheral vertigo probably related to recent respiratory infection. Patient also has evidence of persistent sinusitis/bronc hitis. Encouraged to stop smoking. Tylenol for her headache. Augmentin for sinus infection. - Vital Signs Vital signs: Temp Pulse Resp BP Pulse Ox 98.5 F 88 16 160/88 H 98 10/13/19 22:57 10/13/19 22:57 10/13/19 22:57 10/13/19 22:57 10/13/19 22:57 - Laboratory Result Diagrams: 10/13/19 18:35 10/13/19 18:35 Laboratory results interpreted by me: 10/13/19 10/13/19 10/13/19 18:35 18:35 18:35 RDW 22.1 H BUN 24 H Est GFR (MDRD) Non-Af 50 L Urine Blood MODERATE H Leukocyte Esterase Rfl SMALL H - Diagnostic Test Radiology reviewed: Reports reviewed Radiology results interpreted by me: 10/13/19 23:[address] shows microvascular changes only. Patient also has a large mucous retention cyst of the right maxillary sinus Discharge - Discharge Clinical Impression: Vertigo Maxillary sinusitis Qualifiers: Chronicity: unspecified Qualified Code(s): J32.0 - Chronic maxillary sinusitis Condition: Stable Disposition: HOME, SELF-CARE Instructions: Vertigo ([facility]), Meclizine ([facility]) Additional Instructions: Follow-up with your primary care provider within the next 3 to 5 days. Take prescribed antibiotic and Tylenol as needed. You may also take the vertigo medication prescribed by your primary provider previously. Return here as needed for new or worsening symptoms: Pain that is worsening or unimproved Uncontrolled vomiting High fever or shaking chills Overall worsening Prescriptions: Amoxicillin/Potassium Clav [Augmentin 875-125 Tablet] 1 tab PO BID #20 tab Referrals: CHAPIS TAMEZ PA-C [Primary Care Provider] - Follow up as needed
== END 2019-10-13 23:53 | disposition home or self-care (01) ==
LOC: ER 16:47
DX: J32.0 Chronic maxillary sinusitis (principal); R42 Dizziness and giddiness; R51 Headache; R05 Cough; F17.200 Nicotine dependence, unspecified, uncomplicated; E78.00 Pure hypercholesterolemia, unspecified; Z90.49 Acquired absence of other specified parts of digestive tract; Z98.51 Tubal ligation status
CPT/HCPCS: 99284; 36415; 87086; 85025; 85610; 85730; 87088; 80053; 81001; 84484; 70450; A9270 ×2